=== PATIENT | male | born 1930 | race Caucasian/White ===

== ENCOUNTER 2019-01-22 12:57 | Outpatient (CLI) | payer MEDICARE, OTHER ==
[~2019-01-22 12:57] MED LIST: AMLO5TAB4 PO; APIX5TAB PO
[2019-01-22] MEDS ORDERED: TAMS-11 PO (13:46)
[2019-01-22 13:51] LABS: BASOPHILS # (AUTO) 0.02 x10^3/uL (0-0.1); BASOPHILS % (AUTO) 0 % (0-1); EOSINOPHILS # (AUTO) 0.15 x10^3/uL (0-0.4); EOSINOPHILS % (AUTO) 2 % (1-7); LYMPHOCYTES # (AUTO) 1.98 x10^3/uL (1-3.4); LYMPHOCYTES % (AUTO) 26 % (22-44); MD NO; MEAN CORPUSCULAR HEMOGLOBIN 33.7 pg (27.5-34.5); MEAN CORPUSCULAR HGB CONC 32.9 g/dL (33.2-36.2); MEAN CORPUSCULAR VOLUME 102.4 fL (81-97); MEAN PLATELET VOLUME 8.4 fL (7.4-10.4); MONOCYTES # (AUTO) 0.72 x10^3/uL (0.2-0.8); MONOCYTES % (AUTO) 10 % (2-9); NEUTROPHILS # (AUTO) 4.71 x10^3/uL (1.8-6.8); NEUTROPHILS % (AUTO) 62 % (42-75); PLATELET COUNT 145 x10^3/uL (130-400); RED BLOOD COUNT 4.83 x10^6/uL (4.38-5.82); RED CELL DISTRIBUTION WIDTH 13.6 % (9.4-14.8)
[2019-01-22 14:05] LABS: ALANINE AMINOTRANSFERASE 21 U/L (12-78); ALBUMIN 3.6 g/dL (3.4-5.0); ANION GAP 6 mmol/L (5-15); CALCIUM 8.6 mg/dL (8.5-10.1); CHLORIDE 107 mmol/L (98-107)
[2019-01-22 14:07] LABS: ALKALINE PHOSPHATASE 157 U/L (45-117); BILIRUBIN,TOTAL 0.7 mg/dL (0.2-1.0); TOTAL PROTEIN 8.3 g/dL (6.4-8.2)
== END 2019-01-22 23:59 | disposition home or self-care (01) ==
LOC: STAR 12:57
PROVIDERS: ATTEND Specialist
DX: Z01.818 Encounter for other preprocedural examination (principal); R22.1 Localized swelling, mass and lump, neck; R00.0 Tachycardia, unspecified; I44.4 Left anterior fascicular block; I49.3 Ventricular premature depolarization; Z85.819 Personal history of malignant neoplasm of unspecified site of lip, oral cavity, and pharynx
CPT/HCPCS: 36415; 80053; 85025; 93005

== ENCOUNTER 2019-01-28 12:48 | Inpatient (IN) | payer MEDICARE, OTHER ==
[~2019-01-28] VITALS: Ht 177.8 cm; Wt 74.0 kg
[~2019-01-28 12:48] MED LIST changes: +PHENYLEPHRINE 10 MG/ML ONE; +TAMS-11 PO
[2019-01-28] MEDS ORDERED: LIDOCAINE 1%-EPI 1:100K, 50ML ONE (13:18)
[2019-01-28] MEDS ORDERED: NEOSPORIN OINT. PKT 1 PACKET ONE ×2 (13:18→13:19)
[2019-01-28] MEDS ORDERED: LACTATED RINGERS 1,000 ML IV SCH ×2 (13:59→14:23)
[2019-01-28] MEDS ORDERED: ACETAMINOPHEN 500 MG TABLET PO ONE (14:00)
[2019-01-28] MEDS ORDERED: GABAPENTIN 300 MG CAPSULE PO ONE (14:00)
[2019-01-28] MEDS ORDERED: FENTANYL PF 250 MCG/5ML ONE (15:11)
[2019-01-28] MEDS ORDERED: BACITRACIN OINT 500U/GM, 15 GM ONE (15:32)
[2019-01-28] MEDS ORDERED: DIPHENHYDRAMINE 50 MG/ML, 1ML IVPush PRN (18:00)
[2019-01-28] MEDS ORDERED: HYDROmorphone 2 MG/ML, 1ML IVPush PRN (18:00)
[2019-01-28] MEDS ORDERED: FENTANYL PF 100 MCG/2ML IV PRN (18:00)
[2019-01-28] MEDS ORDERED: METOPROLOL 1 MG/ML, 5ML IV PRN (18:00)
[2019-01-28] MEDS ORDERED: OXYcodone 5 MG/5 ML ORAL.SOL UDC PO PRN (18:00)
[2019-01-28] MEDS ORDERED: PROMETHAZINE 25 MG/ML, 1ML IV PRN (18:00)
[2019-01-28] MEDS ORDERED: PROCHLORPERAZINE 5 MG/ML, 2ML IV PRN (18:00)
[2019-01-28] MEDS ORDERED: HALOPERIDOL 5 MG/ML IV PRN (18:00)
[2019-01-28] MEDS ORDERED: MEPERIDINE/PF 25MG/0.5ML IVPush PRN (18:00)
[2019-01-28] MEDS ORDERED: hydrALAzine 20 MG/ML, 1ML IV PRN (18:00)
[2019-01-28] MEDS ORDERED: LABETALOL 5MG/ML, 20ML IV PRN (18:00)
[2019-01-28] MEDS ORDERED: ROCURONIUM 10MG/ML,5ML ONE (18:11)
[2019-01-28] MEDS ORDERED: PROPOFOL 10 MG/ML, 20ML ONE (18:11)
[2019-01-28] MEDS ORDERED: CEFAZOLIN 1,000 MG ONE (18:11)
[2019-01-28] MEDS ORDERED: GLYCOPYRROLATE 0.2MG/1ML, 5ML ONE (18:11)
[2019-01-28] MEDS ORDERED: ONDANSETRON 2MG/ML, 2ML ONE (18:11)
[2019-01-28] MEDS ORDERED: NEOSTIGMINE 1 MG/ML, 10ML ONE (18:11)
[2019-01-28] MEDS ORDERED: SUCCINYLCHOLINE 20 MG/ML, 10ML ONE (18:11)
[2019-01-28] MEDS ORDERED: DEXAMETHASONE 4 MG/ML, 1ML ONE (18:11)
[2019-01-28] MEDS ORDERED: OXYcodone 5 MG/5 ML ORAL.SOL UDC ONE (19:01)
[2019-01-28 19:45] VITALS: BP 117/74
[2019-01-28] MEDS ORDERED: HYDROcodone/APAP 5/325 TABLET PO PRN (21:00)
[2019-01-28] MEDS ORDERED: ONDANSETRON 2MG/ML, 2ML IV PRN (21:00)
[2019-01-28] MEDS: SODIUM CHLORIDE FLUSH 10ML SYR IVF SCH (21:00)
[2019-01-29 00:30] VITALS: BP 91/58
[2019-01-29 02:17] VITALS: BP 98/62
[2019-01-29] MEDS: LACTATED RINGERS 1,000 ML IV SCH ×2 (03:23→14:30)
[2019-01-29 03:46] VITALS: BP 109/66
[2019-01-29 07:18] VITALS: BP 104/62
[2019-01-29] MEDS ORDERED: TAMSULOSIN 0.4 MG CAP.ER.24H PO SCH (09:00)
[2019-01-29] MEDS ORDERED: AMLODIPINE 5 MG TABLET PO SCH (09:00)
[2019-01-29] MEDS: SODIUM CHLORIDE FLUSH 10ML SYR IVF SCH (09:04)
[2019-01-29 13:04] VITALS: BP 103/57
== END 2019-01-29 15:41 | disposition home or self-care (01) | DRG 577 ==
LOC: ORIP 12:48 → 4NOR 19:55 → DCLOUNGE 01-29 15:34
PROVIDERS: ADMIT Specialist; ATTEND Specialist
PROC: 0HX4XZZ Transfer Neck Skin, External Approach (ICD-10-PCS; 2019-01-28)
PROC: 07B20ZX Excision of Left Neck Lymphatic, Open Approach, Diagnostic (ICD-10-PCS; 2019-01-28)
PROC: 0HB4XZZ Excision of Neck Skin, External Approach (ICD-10-PCS; principal; 2019-01-28 15:00)
DX: C79.2 Secondary malignant neoplasm of skin (principal); C77.0 Secondary and unspecified malignant neoplasm of lymph nodes of head, face and neck; C00.1 Malignant neoplasm of external lower lip; G25.89 Other specified extrapyramidal and movement disorders; I10 Essential (primary) hypertension; H91.90 Unspecified hearing loss, unspecified ear; I73.9 Peripheral vascular disease, unspecified; Z86.718 Personal history of other venous thrombosis and embolism; Z79.01 Long term (current) use of anticoagulants; Z79.899 Other long term (current) drug therapy; Z85.819 Personal history of malignant neoplasm of unspecified site of lip, oral cavity, and pharynx
CPT/HCPCS: 36415; 86850; 86900; 88305; 88331; G0378; J0690; J1100; J2405; J2704; J2710; J3010; J0330; J2370; J7120

== ENCOUNTER 2019-03-01 08:29 | Outpatient (CLI) | payer MEDICARE, OTHER ==
[~2019-03-01 08:29] MED LIST changes: -PHENYLEPHRINE 10 MG/ML ONE
== END 2019-03-01 23:59 | disposition home or self-care (01) ==
LOC: ROC 08:29
PROVIDERS: ATTEND Radiology Radiation Oncology
DX: C00.1 Malignant neoplasm of external lower lip (principal); I10 Essential (primary) hypertension; Z86.718 Personal history of other venous thrombosis and embolism; Z79.899 Other long term (current) drug therapy; Z90.49 Acquired absence of other specified parts of digestive tract
CPT/HCPCS: G0463